=== PATIENT | male | born 1990 | race Caucasian/White ===

== ENCOUNTER 2020-05-01 18:55 | Emergency (ER) | payer OTHER ==
[2020-05-01] MEDS ORDERED: DIPH/PERTUSS(ACELL)/TETANUS VAC/PF 0.5 ML SYR (>=10YO) IM ONE ×2 (19:33→23:15)
[2020-05-01] MEDS ORDERED: AMPICILLIN SOD/SULBACTAM 3 GM VIAL IV ONE ×2 (19:33→23:15)
--- NOTE | 2020-05-01 19:36 | ER Document Report ---
ED Medical Screen (RME) - General Stated Complaint: COVID + DOG BITE FEVER Time Seen by Provider: 05/01/20 19:29 Notes: Patient reports playing with his dog and getting bit to his right hand last night. Patient states that today he has been squeezing on the wound and noticed red streaking going up the arm. Patient states that he has had a fever of 101- 102 today. Patient states that his did test positive for Covid and he has been around her although has not had a test himself. Patient without any cough or cold symptoms. Patient is right-hand dominant. I have greeted and performed a rapid initial assessment of this patient. A comprehensive ED assessment and evaluation of the patient, analysis of test results and completion of the medical decision making process will be conducted by additional ED providers. Physical Exam - Vital signs Vitals: Temp Pulse Resp BP Pulse Ox 99.5 F 96 18 142/78 H 98 05/01/20 19:12 05/01/20 19:12 05/01/20 19:12 05/01/20 19:12 05/01/20 19:12 - General Notes: Puncture wound to right hand with lymphangitic streaking up the right upper extremity. Course - Vital Signs Vital signs: Temp Pulse Resp BP Pulse Ox 99.5 F 96 18 142/78 H 98 05/01/20 19:12 05/01/20 19:12 05/01/20 19:12 05/01/20 19:12 05/01/20 19:12
[2020-05-01 20:56] LABS: ABSOLUTE LYMPHOCYTES (AUTO) 1.4 10^3/uL (0.5-4.7); ABSOLUTE MONOCYTES (AUTO) 0.6 10^3/uL (0.1-1.4); ABSOLUTE NEUT (AUTO) 2.7 10^3/uL (1.7-8.2); BASOPHILS % (AUTO) 0.2 % (0-2); EOSINOPHILS % (AUTO) 0.7 % (0-6); HEMATOCRIT 44.4 % (37.9-51.0); HEMOGLOBIN 15.9 g/dL (13.5-17.0); LYMPHOCYTES % (AUTO) 30.4 % (13-45); MEAN CORPUSCULAR HEMOGLOBIN 29.3 pg (27.0-33.4); MEAN CORPUSCULAR HGB CONC 35.9 g/dL (32.0-36.0); MEAN CORPUSCULAR VOLUME 82 fl (80-97); MONOCYTES % (AUTO) 11.6 % (3-13); PLATELET COUNT 167 10^3/uL (150-450); RED BLOOD COUNT 5.44 10^6/uL (4.35-5.55); RED CELL DISTRIBUTION WIDTH 13.5 % (11.5-14.0); SEGMENTED NEUTROPHILS % (AUTO) 57.1 % (42-78); TOTAL CELLS COUNTED % (AUTO) 100 %; WHITE BLOOD COUNT 4.7 10^3/uL (4.0-10.5)
[2020-05-01 21:14] LABS: ALBUMIN 4.3 g/dL (3.5-5.0); ALKALINE PHOSPHATASE 54 U/L (38-126); ANION GAP 5 (5-19); ASPARTATE AMINO TRANSFERASE 38 U/L (17-59); BILIRUBIN,DIRECT 0.2 mg/dL (0.0-0.4); BILIRUBIN,TOTAL 0.5 mg/dL (0.2-1.3); BLOOD UREA NITROGEN 9 mg/dL (7-20); CARBON DIOXIDE 32 mmol/L (22-30); CHLORIDE 101 mmol/L (98-107); GLUCOSE 107 mg/dL (75-110); POTASSIUM 4.3 mmol/L (3.6-5.0); TOTAL PROTEIN 7.6 g/dL (6.3-8.2)
--- NOTE | 2020-05-01 21:22 | RADIOLOGY REPORT (SQ) ---
EXAM DESCRIPTION: HAND RIGHT 3 VIEWS 05/01/2020 7:32 PM MEDICAL PRACTICE ADMINISTRATOR CLINICAL HISTORY: 29 years Male, dog bite base of thumb; ; COMPARISON: None. FINDINGS: 3 views were obtained. Visualized osseous structures are normal in appearance. Joint spaces are well-maintained. No acute fracture or dislocation is evident. Focal soft tissue swelling is evident about the base of the thumb. No retained radiopaque foreign body. IMPRESSION: Focal soft tissue swelling about the base of the thumb. No retained radiopaque foreign body or underlying fracture.
[2020-05-02] MEDS ORDERED: MUPIROCIN 2% OINTMENT 22 GM TP ONE (03:04)
[2020-05-02 03:05] VITALS: BP 132/88
[2020-05-02] MEDS ORDERED: AMOXICILLIN TR/POT CLAVULANATE 875-125 MG TAB PO ONE (03:07)
--- NOTE | 2020-05-02 03:13 | ER Document Report ---
ED Animal Bite - General Chief Complaint: Dog Bite Stated Complaint: COVID + DOG BITE FEVER Time Seen by Provider: 05/01/20 19:29 Mode of Arrival: Ambulatory Information source: Patient Notes: 29-year-old male presented to ED for dog bite to the right hand. He states he has been getting some pus out of the hand and when it got hot he came to the emergency room. He states his is positive for Covid so he and his family have all been told that they are considered positive and they needed to quarantine. Patient does have a red streak from the dog bite site on the right hand up to just below his elbow. He was seen in triage and started on IV antibiotics and he was given a tetanus immunization. He states he has been cleaning his hand but he did not take it was good to be anything serious until he saw the red streak. Constitutional: Negative for fever. HENT: Negative for sore throat. Eyes: Negative for visual changes. Cardiovascular: Negative for chest pain. Respiratory: Negative for shortness of breath. Gastrointestinal: Negative for abdominal pain, vomiting or diarrhea. Genitourinary: Negative for dysuria. Musculoskeletal: Negative for back pain. Skin: Dog bite to right hand with purulent drainage from the site and red streak up the right arm. Pain and swelling to the right hand Neurological: Negative for headaches, weakness or numbness. 10 point ROS negative except as marked above and in HPI. PHYSICAL EXAMINATION: GENERAL: Well-appearing, well-nourished and in no acute distress. HEAD: Atraumatic, normocephalic. EYES: Pupils equal round extraocular movements intact, conjunctiva are normal. ENT: Nares patent NECK: Normal range of motion LUNGS: No respiratory distress Musculoskeletal: Normal range of motion NEUROLOGICAL: Normal speech, normal gait. PSYCH: Normal mood, normal affect. SKIN: Dog bite to the right hand just proximal to the thumb with purulent drainage at the site and with red streak up to the right elbow. - HPI Location of injury: Other - Right hand Severity of injury: Bitten Onset: Other - New Year's Ami Quality of pain: Sharp Pain Level: 1 Context of attack: Playing with animal Type of animal: Dog Appearance of animal: Appeared well Animal's immunizations: UTD Animal captured or known: Yes Animal control notified: Yes Animal control form completed: Yes - Related Data Allergies/Adverse Reactions: sulfamethoxazole [From Bactrim] Allergy (Verified 05/01/20 23:13) trimethoprim [From Bactrim] Allergy (Verified 05/01/20 23:13) Past Medical History - General Information source: Patient - Social History Smoking Status: Never Smoker Frequency of alcohol use: Occasional Drug Abuse: None Lives with: Family Family History: Reviewed & Not Pertinent - Past Medical History Cardiac Medical History: Reports: None Pulmonary Medical History: Reports: Hx Asthma Neurological Medical History: Reports: None Endocrine Medical History: Reports: None Renal/ Medical History: Reports: None Malignancy Medical History: Reports None GI Medical History: Reports: None Musculoskeletal Medical History: Reports Hx Musculoskeletal Trauma Skin Medical History: Reports Hx Cellulitis Psychiatric Medical History: Reports: None Traumatic Medical History: Reports: Hx Fractures - Left hand fingers and toes Infectious Medical History: Reports: None Past Surgical History: Reports: Hx Appendectomy - Immunizations Immunizations up to date: Yes Hx Diphtheria, Pertussis, Tetanus Vaccination: Yes - 05/01/2020 Physical Exam - Vital signs Vitals: Temp Pulse Resp BP Pulse Ox 99.5 F 96 18 142/78 H 98 05/01/20 19:12 05/01/20 19:12 05/01/20 19:12 05/01/20 19:12 05/01/20 19:12 Course - Re-evaluation Re-evalutation: 05/02/20 09:47 Labs and x-ray were discussed with patient and written report of labs and x-ray were given to patient. I did discuss this patient with Dr. Ribera. Patient had been given Unasyn and tetanus immunization in the triage area. He is supposed to be on quarantine due to his being positive for Covid. Patient was also treated with tetanus ibuprofen and Augmentin. He was discharged home with prescription for Augmentin and Bactroban for this infected dog bite. Was given instructions on cleaning the wound 3 times a day covered with Bactroban and taking his Augmentin as prescribed. He was instructed to return to the emergency room immediately for any increase in symptoms. Patient did verbalize understanding and agreement with treatment plan and he was discharged home. Surendra harris was able to verbalize understanding and agreement with treatment plan and he was discharged home. - Vital Signs Vital signs: Temp Pulse Resp BP Pulse Ox 99.1 F 90 18 132/88 H 100 05/02/20 03:04 05/02/20 03:04 05/02/20 03:04 05/02/20 03:04 05/02/20 03:04 - Laboratory Results Result Diagrams: 05/01/20 20:31 05/01/20 20:31 Laboratory Results Interpreted: 05/01/20 20:31 Carbon Dioxide 32 H Critical Laboratory Results Reviewed: No Critical Results - Radiology Results Critical Radiology Results Reviewed: No Critical Results Discharge - Discharge Clinical Impression: Dog bite of right hand with infection Qualifiers: Encounter type: initial encounter Qualified Code(s): S61.451A - Open bite of right hand, initial encounter Condition: Stable Disposition: HOME, SELF-CARE Instructions: COVID-19 Guidance for Persons Under Investigation Additional Instructions: Animal Bites Animal bites are often heavily contaminated with bacteria. In spite of thorough cleansing and proper treatment, these wounds frequently become infected. Bite wounds of the hands are especially prone to complications. Bites are dressed, if possible. Large wounds may require suturing after internal cleansing. Because of infection risk, some large wounds must remain unstitched. Your doctor is trained to advise you on the best treatment for your bite. Call the doctor at once if the wound becomes red, swollen, warm, increasingly painful, or if it begins to drain. Danger signs also include red streaks up the involved extremity, swollen glands in the groin or under the arm, or fever and chills. The risk of rabies from domestic animals is very low. Bats, sick animals, and wild animals may expose you to rabies. The physician, or the health department, will inform you if you will need to receive the rabies vaccine. CELLULITIS: You have an infection of your skin and underlying soft tissues called cellulitis. This is due to bacteria, which can enter through any break in the skin, or even through an irritated hair follicle. Untreated, cellulitis will usually worsen. Antibiotics are required. Usually, warm packs or warm soaks, and elevation of the infected area are recommended. You should start getting better within 24 to 36 hours. Most infections respond quickly to the right medication. Follow-up care is important, however, to check for abscess (boil) formation, unsuspected foreign body, or resistant infection. If you develop fever, chills, or if the area of infection is becoming rapidly more swollen or painful, call the doctor at once. Tetanus Immunization Given You have been given an immunization against tetanus. Please record this in your records. In general, a booster is needed only once every 10 years. The tetanus shot protects against tetanus or "lockjaw," which is a complication of certain wound infections (the tetanus shot cannot protect against the actual infection). The immunization site may become warm and red due to local reaction. If this occurs, apply warm compresses and take aspirin or ibuprofen to reduce inflammation and discomfort. Return for evaluation if the reaction becomes severe. I.V. ANTIBIOTICS: You have been given an antibiotic by vein. This is done for more serious infections. The IV antibiotics are usually followed by pills. Common side effects of antibiotics include nausea, intestinal cramping, or diarrhea. These are very unusual following a shot. Women may develop vaginal yeast infections, and babies can get yeast (thrush) in the mouth following the use of antibiotics. Contact your physician if you develop significant side effects from this medication. Allergy to this antibiotic can result in hives, wheezing, faintness, or itching. If symptoms of allergy occur, call the doctor at once. If further IV doses of antibiotic are planned, an IV lock may have been placed in your vein. This provides a way to give periodic IV medications (without starting a new IV) while you go about your activities. Don't allow the IV site to be bumped. Don't touch the IV needle. If the tape comes loose, apply more tape to secure the IV. Don't get the IV area wet. If bleeding occurs, remove the bandage. If blood is coming from where the plastic needle enters the skin, apply pressure until the bleeding has stopped. If the blood is coming from the IV cap, grasp the cap with one hand and grasp the wide part of the IV needle with the other hand, then gently twist (clockwise) until the cap is tight. If bleeding continues, return for examination. Call the doctor or come back if you develop chills or fever, or if the IV area becomes swollen, tender, or red. Bactroban Ointment Bactroban is very effective against the germs that cause infection within the skin. It's useful for impetigo and other superficial infections. Deeper infections require antibiotics by mouth or by shot. Apply the medicine three times a day for one week, or longer if your doctor has advised it. Stop the medicine and call your doctor if you develop large blisters, sever e itching, increasing pain, swelling, fever, or spreading redness. Soap Cleansing Gently wash the wound daily using a mild soap (like Ivory, Phisoderm, Neutrogena). Use warm water, rubbing gently until all debris, ooze, and crusting have been washed from the wound. Allow to dry briefly (about 10 minutes) after cleaning. Repeat this cleansing at least three times a day for the first two days and then once or twice a day. FOLLOW-UP CARE: If you have been referred to a physician for follow-up care, call the physicians office for an appointment as you were instructed or within the next two days. If you experience worsening or a significant change in your symptoms, notify the physician immediately or return to the Emergency Department at any time for re-evaluation. Prescriptions: Amoxicillin/Potassium Clav [Augmentin 875-125 Tablet] 1 tab PO Q12 #20 tablet Forms: Elevated Blood Pressure, Smoking Cessation Education
[2020-05-02] MEDS ORDERED: IBUPROFEN 800 MG TABLET PO ONE (03:22)
== END 2020-05-02 03:30 | disposition home or self-care (01) ==
LOC: ER 18:55
DX: S61.451A Open bite of right hand, initial encounter (principal); W54.0XXA Bitten by dog, initial encounter; Z23 Encounter for immunization; Z20.822 Contact with and (suspected) exposure to COVID-19
CPT/HCPCS: 99284; 90471; 96365; 36415; 87040; 85025; 80053; 73130; 90715; J0295; J3490 ×2

== ENCOUNTER 2020-05-14 05:25 | Emergency (ER) | payer OTHER ==
[2020-05-14] MEDS ORDERED: NORMAL SALINE 1000 ML 1,000 ML IV ONE (06:26)
[2020-05-14] MEDS ORDERED: FAMOTIDINE INJ/PF 20 MG/2 ML SDV IV ONE (06:26)
[2020-05-14] MEDS ORDERED: KETOROLAC TROMETHAMINE INJ/PF 30 MG/1 ML SDV IV ONE (06:26)
[2020-05-14 06:30] LABS: ABSOLUTE EOSINOPHILS # (AUTO) 0.1 10^3/uL (0.0-0.6); ABSOLUTE LYMPHOCYTES (AUTO) 1.6 10^3/uL (0.5-4.7); ABSOLUTE MONOCYTES (AUTO) 0.5 10^3/uL (0.1-1.4); ABSOLUTE NEUT (AUTO) 4.2 10^3/uL (1.7-8.2); BASOPHILS % (AUTO) 0.3 % (0-2); EOSINOPHILS % (AUTO) 1.8 % (0-6); HEMATOCRIT 42.1 % (37.9-51.0); HEMOGLOBIN 15.1 g/dL (13.5-17.0); LYMPHOCYTES % (AUTO) 24.1 % (13-45); MEAN CORPUSCULAR HEMOGLOBIN 28.7 pg (27.0-33.4); MEAN CORPUSCULAR VOLUME 80 fl (80-97); PLATELET COUNT 215 10^3/uL (150-450); RED BLOOD COUNT 5.28 10^6/uL (4.35-5.55); RED CELL DISTRIBUTION WIDTH 13.7 % (11.5-14.0); SEGMENTED NEUTROPHILS % (AUTO) 65.8 % (42-78); TOTAL CELLS COUNTED % (AUTO) 100 %; WHITE BLOOD COUNT 6.5 10^3/uL (4.0-10.5)
--- NOTE | 2020-05-14 06:39 | ER Document Report ---
Entered by REGINALDO ARTEAGA SCRIBE 05/14/20 0616 Acting as scribe for:ALLAN GARCÍA MD ED General - General Chief Complaint: Chest Pain Stated Complaint: CHEST PAIN Time Seen by Provider: 05/14/20 06:14 Primary Care Provider: [facility] [Provider Group] - Follow up as needed CATRINA YOUNGER FNP-C [Primary Care Provider] - Follow up as needed Mode of Arrival: Ambulatory Information source: Patient Notes: This 29 year old male patient presents to the emergency department today with complaint of upper abdominal pain which began last night at 10 PM. He reports that he initially thought it was reflux so he took antacids and it seemed to slightly ease up and he got to sleep. He reports that he was awoken out of sleep with increasing pain in this same area and he mentions that the pain radiated through to his back. He tried more antacids, as well as drinking apple cider vinegar, water, and milk with no relief. He mentions that he had a similar episode a few months ago and was close to going to the hospital but he states that it eased up. He ate chick-grace-a for dinner last night. - Related Data Allergies/Adverse Reactions: sulfamethoxazole [From Bactrim] Allergy (Verified 05/14/20 07:22) trimethoprim [From Bactrim] Allergy (Verified 05/14/20 07:22) Home Medications: Amoxicillin Past Medical History - General Information source: Patient - Social History Smoking Status: Never Smoker Cigarette use (# per day): No Frequency of alcohol use: Occasional Drug Abuse: None Lives with: Family Family History: Reviewed & Not Pertinent Pulmonary Medical History: Reports: Hx Asthma Musculoskeletal Medical History: Reports Hx Musculoskeletal Trauma Skin Medical History: Reports Hx Cellulitis Traumatic Medical History: Reports: Hx Fractures - Left hand fingers and toes Past Surgical History: Reports: Hx Appendectomy - Immunizations Immunizations up to date: Yes Hx Diphtheria, Pertussis, Tetanus Vaccination: Yes - 05/01/2020 Review of Systems - Review of Systems Constitutional: No symptoms reported EENT: No symptoms reported Cardiovascular: No symptoms reported Respiratory: No symptoms reported Gastrointestinal: See HPI, Abdominal pain - radiates to back Genitourinary: No symptoms reported Male Genitourinary: No symptoms reported Musculoskeletal: No symptoms reported Skin: No symptoms reported Hematologic/Lymphatic: No symptoms reported Neurological/Psychological: No symptoms reported -: Yes All other systems reviewed and negative Physical Exam - Vital signs Vitals: Resp BP Pulse Ox 23 H 137/97 H 100 05/14/20 06:01 05/14/20 06:01 05/14/20 06:01 - Notes Notes: Physical Exam: General: Alert, appears mildly uncomfortable. HEENT: Normocephalic. Atraumatic. PERRL. Extraocular movements intact. Oropharynx clear. Neck: Supple. Non-tender. Respiratory: No respiratory distress. Clear and equal breath sounds bilaterally. Cardiovascular: Regular rate and rhythm. Abdominal: Mild epigastric tenderess to palpation with increasing tenderness in the right upper quadrant. No distension. Normal Bowel Sounds. Back: No gross abnormalities. Extremities: Moves all four extremities. Upper extremities: Normal inspection. Normal ROM. Lower extremities: Normal inspection. No edema. Normal ROM. Neurological: Normal cognition. AAOx4. Normal speech. Psychological: Normal affect. Normal Mood. Skin: Warm. Dry. Normal color. Course - Vital Signs Vital signs: Temp Pulse Resp BP Pulse Ox 98.4 F 29 H 137/99 H 100 05/14/20 07:59 05/14/20 07:11 05/14/20 07:11 05/14/20 07:11 - Laboratory Results Result Diagrams: 05/14/20 06:02 05/14/20 06:02 Laboratory Results Interpreted: 05/14/20 06:02 Carbon Dioxide 33 H ALT 105 H Critical Laboratory Results Reviewed: No Critical Results - Radiology Results Radiology Results Interpreted: 05/14/20 07:50 Gallstones, otherwise unremarkable right upper quadrant ultrasound Critical Radiology Results Reviewed: No Critical Results - EKG Interpretation by Pa EKG shows normal: Sinus rhythm, Crary, Intervals, QRS Complexes, ST-T Waves Rate: Normal - 57 Rhythm: NSR Discharge - Discharge Clinical Impression: Cholelithiasis without cholecystitis Condition: Stable Disposition: HOME, SELF-CARE Additional Instructions: Gallbladder Disease: Your evaluation shows evidence of gallbladder disease. The gallbladder is a pouch under the liver which stores bile. Stones, infection, or irritation of the gallbladder cause attacks of pain. Certain foods -- fats in particular -- may provoke attacks. The usual treatment for gallbladder disease is surgical removal of the gallbladder -- called a cholecystectomy. You will be referred to a physician qualified to advise you on the best treatment for your problem. Hospitalization is not necessary. Take clear liquids only until you are painfree. After that, you should stay on a low-fat diet, with frequent SMALL meals. Call the doctor or return at once if you develop severe pain, repeated vomiting, fever, or jaundice (a yellow color in the skin and whites of the eyes). Low-Fat Diet The physician has recommended a low-fat diet. This diet is often used for gallbladder or pancreas problems. Your meals should be high-carbohydrate (potato, apples, noodles, breads, vegetables). Eat fish or skinless chicken (boiled or baked rather than fried) for protein. Beans and peas are good sources of fat-free protein. Soups are usually very low-fat. Don't eat anything fried. Avoid red meats. Avoid most dairy products. Skim milk and non-fat yogurt are OK. Most popular cheeses are very high-fat. Don't add butter or sauces -- use lemon or pepper instead. If you like salads, use one of the new "non-fat" dressings. "Fast Food" is "fat food." There is virtually nothing from a typical fast- food restaurant that you can eat. Fish patties and chicken nuggets are almost always deep-fat fried. "Special Sauces" are mostly fat. Eat a low-fat diet. Take antacids between meals and at bedtime. Take the pain medication as prescribed if needed. Call [facility] to schedule an appointment for evaluation of your gallbladder disease. RETURN TO THE EMERGENCY ROOM IF ANY NEW OR WORSENING SYMPTOMS. Prescriptions: Hydrocodone/Acetaminophen [[place] 5-325 mg Tablet] 1 tab PO ASDIR PRN #12 tablet PRN Reason: For Pain Referrals: CATRINA YOUNGER, REGIONAL ADMINISTRATIVE ASSISTANT-C [Primary Care Provider] - Follow up as needed [facility] [[facility] Group] - Follow up as needed I personally performed the services described in the documentation, reviewed and edited the documentation which was dictated to the scribe in my presence, and it accurately records my words and actions.
[2020-05-14 06:41] LABS: ALBUMIN 4.1 g/dL (3.5-5.0); ALKALINE PHOSPHATASE 67 U/L (38-126); ANION GAP 5 (5-19); ASPARTATE AMINO TRANSFERASE 56 U/L (17-59); BILIRUBIN,DIRECT 0.3 mg/dL (0.0-0.4); BILIRUBIN,TOTAL 0.7 mg/dL (0.2-1.3); BLOOD UREA NITROGEN 14 mg/dL (7-20); CALCIUM 9.5 mg/dL (8.4-10.2); CARBON DIOXIDE 33 mmol/L (22-30); CHLORIDE 102 mmol/L (98-107); CREATINE KINASE 132 U/L (55-170); GLUCOSE 109 mg/dL (75-110); POTASSIUM 4.1 mmol/L (3.6-5.0); TOTAL PROTEIN 7.3 g/dL (6.3-8.2)
--- NOTE | 2020-05-14 07:35 | RADIOLOGY REPORT (SQ) ---
Ultrasound right upper quadrant on 05/14/2020 at 6:53 AM CLINICAL INDICATION: Right upper quadrant pain COMPARISON: None FINDINGS: Multiple sonographic images are obtained throughout the right upper quadrant, both transverse and sagittal images are obtained. Visualized pancreas is unremarkable. Visualized aorta is unremarkable. Visualized liver is homogeneous without focal liver lesion. There are multiple echogenic foci with posterior shadowing in the gallbladder consistent with multiple gallstones. No gallbladder wall thickening or pericholecystic fluid is noted. Right kidney shows no hydronephrosis. Portal vein is patent and with a normal directional flow. The common duct measures 2 mm which is within normal limits mitigating against obstruction of the biliary tree. IMPRESSION: Cholelithiasis, otherwise unremarkable.
[2020-05-14 07:38] LABS: AMORPHOUS SEDIMENT,URINE TRACE /HPF; APPEARANCE,URINE CLEAR; BILIRUBIN,URINE NEGATIVE (NEGATIVE); COLOR,URINE YELLOW; GLUCOSE, URINE NEGATIVE (NEGATIVE); KETONES,URINE NEGATIVE (NEGATIVE); LEUKOCYTE ESTERASE,URINE NEGATIVE (NEGATIVE); NITRITE,URINE NEGATIVE (NEGATIVE); PROTEIN,URINE NEGATIVE (NEGATIVE); URINE SPECIFIC GRAVITY 1.019; UROBILINOGEN,URINE NEGATIVE mg/dL (<2.0)
[2020-05-14 07:47] VITALS: BP 137/99
--- NOTE | 2020-05-14 08:14 | RADIOLOGY REPORT (SQ) ---
EXAM DESCRIPTION: CHEST SINGLE VIEW IMAGES COMPLETED DATE/TIME: 05/14/2020 6:57 am REASON FOR STUDY: Chest pain COMPARISON: None. EXAM PARAMETERS: NUMBER OF VIEWS: One view. TECHNIQUE: Single frontal radiographic view of the chest acquired. RADIATION DOSE: NA LIMITATIONS: None. FINDINGS: LUNGS AND PLEURA: No opacities, masses or pneumothorax. No pleural effusion. MEDIASTINUM AND HILAR STRUCTURES: No masses. Contour normal. HEART AND VASCULAR STRUCTURES: Heart normal in size. Normal vasculature. BONES: No acute findings. HARDWARE: None in the chest. OTHER: No other significant finding. IMPRESSION: NO ACUTE RADIOGRAPHIC FINDING IN THE CHEST. TECHNICAL DOCUMENTATION: JOB ID: [id number] 2010 [employer]- All Rights Reserved Reading location - IP/workstation name: [email or web address]
--- NOTE | 2020-05-14 08:31 | EKG REPORT ---
SEVERITY:- NORMAL ECG - SINUS RHYTHM : Confirmed by: Tamara Driscoll MD 14-May-2020 08:31:05
== END 2020-05-14 08:20 | disposition home or self-care (01) ==
LOC: ER 05:25
DX: K80.20 Calculus of gallbladder without cholecystitis without obstruction (principal); R07.9 Chest pain, unspecified; R10.11 Right upper quadrant pain; R10.816 Epigastric abdominal tenderness; R10.811 Right upper quadrant abdominal tenderness; Z79.2 Long term (current) use of antibiotics; J45.909 Unspecified asthma, uncomplicated
CPT/HCPCS: 93005; 99285; 96361; 96374; 96375; 36415; 82550; 83690; 85025; 80053; 81001; 84484; 71045; 76705; 93010; J1885; J7030; S0028